=== PATIENT | female | born 1975 | race Caucasian/White ===

== ENCOUNTER 2021-10-21 06:19 | Outpatient (REF) | payer OTHER, SELFPAY | END 2021-10-21 06:20 | disposition home or self-care (01) | LOC: HO.LAB 06:19 | PROVIDERS: PCP Internal Medicine; Visit Provider Internal Medicine | DX: Z13.89 Encounter for screening for other disorder (principal) ==

== ENCOUNTER 2021-12-08 06:30 | Outpatient (REF) | payer OTHER, SELFPAY ==
[2021-12-08 06:35] LABS: MANUAL DIFF FLAG NO
[2021-12-08 07:05] LABS: Basophils Absolute Auto 0.1 X10*3/uL (0.0-0.2); Basophils Percent Auto 0.9 % (0-2); Eosinophils Absolute Auto 0.2 X10*3/uL (0.0-0.4); Eosinophils Percent Auto 2.5 % (0-4); Hematocrit 39.8 % (37.0-47.0); Hemoglobin 13.4 g/dl (12.0-16.0); Imm Gran Abs Auto 0.01 X10*3/uL (0.00-0.03); Imm Gran Pct Auto 0.2 % (0.0-0.4); Lymphocytes Absolute Auto 2.6 X10*3/uL (1.2-4.9); Lymphocytes Percent Auto 40.4 % (20-40); Mean Corpuscular HGB Conc 33.7 g/dl (31.0-35.0); Mean Corpuscular Hemoglobin 29.2 pg (27.0-33.0); Mean Corpuscular Volume 86.7 fL (80.0-98.0); Mean Platelet Volume 11.4 fL (9.4-12.3); Monocytes Absolute Auto 0.6 X10*3/uL (0.1-1.2); Monocytes Percent Auto 9.6 % (2-11); Neutrophils Percent Auto 46.4 % (45-73); Platelet Count 267 X10*3/uL (160-400); Red Blood Count 4.59 X10*6/uL (4.20-5.50); Red Cell Distribution Width 13.1 % (11.0-16.0); White Blood Count 6.5 X10*3/uL (4.8-10.8)
[2021-12-08 07:41] LABS: Alanine Aminotransferase 18 U/L (0-31); Albumin Level 4.4 g/dL (3.5-5.0); Alkaline Phosphatase 63 U/L (39-117); Anion Gap 11 (12-20); Aspartate Amino Transferase 20 U/L (5-31); Bilirubin Total 0.7 mg/dL (0.0-1.0); Blood Urea Nitrogen 10 mg/dL (9-16); Calcium 9.8 mg/dL (8.4-10.2); Carbon Dioxide 27 mmol/L (22-29); Chloride 106 mmol/L (96-108); Cholesterol 195 mg/dL; Estimated Glomerular Filt Rate > 60; Glucose Fasting 101 mg/dL (60-99); HDL Cholesterol 48 mg/dL; LDL Cholesterol Calculated 130 mg/dl; Potassium 4.7 mmol/L (3.3-5.1); Sodium 139 mmol/L (135-145); Total Protein 7.4 g/dL (6.5-8.0); Triglycerides 86 mg/dL
[2021-12-08 08:04] LABS: TSH reflex Free T4 2.41 uIU/mL (0.32-4.0); Vitamin D 25-OH Total 18.8 ng/mL (>30)
[2021-12-08 09:02] LABS: Folate 12.1 ng/mL (> or = 4.0); Vitamin B12 377 pg/mL (200-900)
[2021-12-08 09:40] LABS: Appearance Urine CLEAR; Color Urine YELLOW; Glucose Urine UA NEG (NEG); Leukocyte Esterase Urine TRACE (NEG); Nitrite Urine NEG (NEG); Specific Gravity - Urine 1.015 (1.005-1.025); UACC Culture Trigger YES; Urine Blood TRACE (NEG); Urine Ketones NEG (NEG); Urine Protein NEG (NEG-TRACE)
[2021-12-08 10:08] LABS: RBC Urine 0-2 /HPF (0); Squamous Epithelial Cell Urine 1+ /LPF; WBC Urine 0-2 /HPF (0-4)
[2021-12-08 10:09] LABS: Bacteria Urine TRACE /LPF
== END 2021-12-08 06:31 | disposition home or self-care (01) ==
LOC: HO.LAB 06:30
PROVIDERS: PCP Internal Medicine; Visit Provider Internal Medicine
DX: Z00.00 Encounter for general adult medical examination without abnormal findings (principal); E78.00 Pure hypercholesterolemia, unspecified; E53.8 Deficiency of other specified B group vitamins; G43.909 Migraine, unspecified, not intractable, without status migrainosus; K59.00 Constipation, unspecified; E55.9 Vitamin D deficiency, unspecified
CPT/HCPCS: 36415; 80053; 80061; 81001; 81003; 82306; 82607; 82746; 84443; 85025; 87086

== ENCOUNTER 2023-09-20 08:58 | Outpatient (AMB) | payer OTHER, SELFPAY ==
[2023-09-20 09:00] VITALS: BP 110/80; PULSE 75; O2SAT 98; BMI 23.0
--- NOTE | 2023-09-20 09:00 | MHC.PC.OV ---
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 Accompanied by: Self / Same As Patient Allergies sumatriptan Allergy (Severe, Verified 09/20/23 09:20) nausea, throat feels like closing codeine Allergy (Intermediate, Verified 09/20/23 09:20) itching Medication List - Last Reconciled 09/20/23 by Kip Osborn MD albuterol sulfate 90 mcg/actuation 2 puffs PO Q6H PRN carisoprodol 350 mg PO TID PRN cholecalciferol (vitamin D3) 50 mcg PO DAILY 90 days ibuprofen 800 mg PO Q12H PRN lorazepam 1 mg PO DAILY PRN 30 days naratriptan 2.5 mg PO ONCE PRN 30 days oxycodone 15 mg PO BID PRN Tobacco use date assessed: 09/20/23 Dental Screening Dental Screen Date: 09/20/23 Did you have a dental visit in the last 12 months?: Yes Did you have a dental problem in the last 6 months where you did not have access to dental care?: No Was dental information given to patient?: Patient has dentist HPI Annual Exam- NEEDS PHQ9/THRIVE HPI Details Patient comes in today for her annual physical examination States that she feels okay She denies any headaches or dizziness - states that her migraine headaches have been well-controlled for a while now and she seems to get them more often just before her monthly periods lately Denies any chest pains, no SOB No nausea/vomiting, no abdominal pain No change in bowel habits noted - still has frequent constipation but takes Miralax when needed with (+) relief of symptoms Denies any acute urinary symptoms She continues to follow up with pain management in [place], [place] for her chronic low back pain Needs a couple of her Rx refilled She was not able to get her labs done prior to her appt today - states that she will try to get them done JOSE if the orders are still active in her chart Would also like to get her flu shot today Had her Cologuard test done a couple of years ago in 2021 - was negative She last had her annual mammogram in June 2023 and states that she is up-to-date with her yearly gynecology exam and pap smear (retirement consultant is at [facility]) [facility] Medical History Vitamin D deficiency Anxiety Constipation Vitamin B12 deficiency Migraine Lumbar spondylosis Pure hypercholesterolemia Surgical History No pertinent past surgical history Family History Father Hypertension CVD (cardiovascular disease) Mother Uterine cancer Social History Housing: House Alcohol intake: current Alcohol intake frequency: holidays/special occasions only Patient Tobacco Use Status: Never used Tobacco Second Hand Smoke Exposure: No service: No Current occupational status: employed Cognitive needs: No Hearing needs: No Vision needs: No Questionnaire PHQ-9 Over the last 2 weeks, how often have you been bothered by any of the following problems? 1. Little interest or pleasure in doing things: not at all 2. Feeling down, depressed, or hopeless: not at all 3. Trouble falling or staying asleep, or sleeping too much: not at all 4. Feeling tired or having little energy: not at all 5. Poor appetite or overeating: not at all 6. Feeling bad about yourself - or that you are a failure or have let yourself or your family down: not at all 7. Trouble concentrating on things, such as reading the newspaper or watching television: not at all 8. Moving or speaking so slowly that other people could have noticed. Or the opposite - being so fidgety or restless that you have been moving around a lot more than usual: not at all 9. Thoughts that you would be better off or of hurting yourself in some way: not at all Total score: 0 Depression Screening Interpretation: Negative Depression Screening Done: Yes [id number] - PHQ-9 Billing: Yes Source: Developed by Drs. João Abdi, Oly Jeter, Darrick Murphy and colleagues, with an educational ciara from [employer]. Thrive Questionnaire Date Thrive assessed: 09/20/23 I am a: Patient What is your living situation today?: I have a steady place to live Within the past 12 months, did the food you bought not last and you didn't have the money to get more?: Never true Within the past 12 months, did you worry whether your food would run out before you got money to buy more?: Never true Do you have trouble paying for medicines?: No Do you have trouble getting transportation to medical appointments?: No Do you have trouble paying your heating and electricity bill?: No Do you have trouble taking care of your child, family member or friend?: No Do you have trouble with day-to-day activities such as bathing, preparing meals, shopping, managing finances, etc.?: No Are you currently unemployed and looking for a job?: No Are you interested in more education?: No Please select the resources that you would like help with: None Currently or been in a relationship where the following occur: no concerns reported AUDIT C Alcohol Use Questionnaire (AUDIT-C) 1. How often do you have a drink containing alcohol?: Monthly or less 2. How many drinks containing alcohol do you have on a typical day when you are drinking?: 1 or 2 3. How often do you have six or more drinks on one occasion?: Never Total Score: 1 Score Reviewed/Action Taken: Yes HARINDER-7 AMB Questionnaire HARINDER-7 Date HARINDER - 7 assessed: 09/20/23 Feeling nervous, anxious, or on edge: 1 = Several days Not being able to stop or control worryin = Several days Worrying too much about different things: 1 = Several days Trouble relaxin = Not at all Being so restless that it is hard to sit still: 0 = Not at all Becoming easily annoyed or irritable: 0 = Not at all Feeling afraid as if something awful might happen: 0 = Not at all Total HARINDER-7 score (0-4 normal; 5-9 mild; 10-14 moderate; 15-21 severe): 3 Source: Developed by Drs. João Abdi, Oly Jeter, Darrick Murphy and colleagues, with an educational ciara from [employer]. Review of Systems Const Denies chills, Denies fatigue, Denies fever(s), Denies headache(s) (migraine headaches are well-controlled - see HPI) and Denies malaise Eyes Denies blurry vision, Denies change in vision, Denies irritation and Denies itchy eyes ENT Denies dysphagia, Denies dizziness, Denies otalgia, Denies headache(s) (migraine headaches are well-controlled - see HPI), Denies nasal congestion, Denies neck pain, Denies odynophagia, Denies sinus pain and Denies sore throat Card Denies chest pain, Denies rapid heart rate, Denies irregular heart rhythm, Denies palpitations and Denies dyspnea Resp Denies chest congestion, Denies cough, Denies dyspnea and Denies wheezing GI Denies abdominal pain, Denies bloating, Reports constipation (occasional), Denies dysphagia, Denies heartburn, Denies diarrhea, Denies nausea, Denies odynophagia and Denies vomiting Denies hematuria, Denies urinary frequency, Denies dysuria, Denies urinary incontinence and Denies urinary urgency Musc Reports back pain (over the lower back - chronic), Denies arthralgias, Denies joint swelling, Denies muscle weakness and Denies neck pain Skin/Breast Denies breast pain, Denies breast mass, Denies change in pigmentation, Denies lesions, Denies rash and Denies unusual bruising Neuro Denies dizziness, Denies headache(s) (migraine headaches are well-controlled - see HPI) and Denies paresthesias Psych Denies anxiety and Denies depression Endo Denies fatigue and Denies palpitations Lorenzo/Lymph Denies easy bruising Aller/Immun Denies itchy eyes and Denies wheezing Physical exam (Primary Care) Vital Signs: Last Vital Signs Pulse 75 09/20/23 09:00 BP 110/80 09/20/23 09:00 Pulse Ox 98 09/20/23 09:00 Oxygen Delivery Method Room Air 09/20/23 09:00 BMI result Body Mass Index 23.0 Tobacco/Smoking Status: Tobacco use Status Tobacco use date assessed 09/20/23 09/20/23 09:07 Patient Tobacco Use Status Never used Tobacco 09/20/23 09:07 PHQ-9: PHQ-9 Score PHQ-9: Total score 0 09/20/23 09:11 Depression Screening Interpretation: Negative Thrive Assessment: Date of Thrive Assessment Date Thrive assessed 09/20/23 09/20/23 09:07 Currently or been in a relationship where the following occur: no concerns reported Const General: no acute distress, alert and awake Orientation/consciousness: patient oriented x3 HENMT Head: Yes normocephalic and Yes atraumatic Ears: external ears normal, TM's normal bilaterally and EAC's normal General nose exam: No nasal discharge present Face and sinus: Yes normal facial exam and Yes sinuses nontender Teeth and gingiva: dentition normal Throat: Yes posterior oropharynx normal and Yes tonsils normal (no TP congestion) Eyes Eyelids: Yes eyelids normal Conjunctivae: conjunctivae normal Pupils: Equal, round and reactive pupils present EOM: EOMs intact bilaterally Neck Neck: Yes no lymphadenopathy and Yes supple Thyroid: Thyroid normal Resp Auscultation: clear to auscultation bilaterally, no rales and no wheezes Cardio Rate: regular rate Rhythm: regular rhythm Heart sounds: no murmurs GI Palpation (GI): Soft to palpation, nontender and No hepatosplenomegaly present Auscultation: normal bowel sounds General: Yes no CVA tenderness Back/Spine/Pelvis Back: no CVA tenderness Thoracic/Lumbar Spine: lumbar spinal tenderness Skin Lesions: no lesions Rashes: no rashes Neuro General: patient oriented x3, moves all extremities, no focal motor deficits and CN's II-XI intact bilaterally Cranial nerves: Yes Equal, round and reactive pupils present Cognition (Neuro): normal cognition Gait exam (Neuro): Normal gait present Extrem General: Yes no clubbing, cyanosis or edema Office Procedures Flu Questionnaire Does the patient have a severe egg allergy?: No Does the patient have severe life threatening allergies?: No Does the patient have a fever or illness today?: No Has the patient ever had Guillain-[place] Syndrome?: No Has the patient ever had any past reaction to a flu shot?: No Immunizations flu vacc [id number] 6mos up(PF) 60 mcg(15 mcgx4)/0.5 mL IM syringe Performing Provider: Kip Osborn MD [facility] Administered by: Ivan Balbuena on 09/20/23 09:11 Dose Route Admin Location Dispensed Lot Number Expiration Date NDC Ethyl Blender 0.5 mL IM Left Deltoid 0.5 mL [id number] 04/15/24 [id number] [employer] VIS Given Date VIS Provided VIS Publication Date 09/20/23 Single Vaccine 21 Eligibility Eligibility Date Funding Source Not [facility] Eligible 09/20/23 Private Assessment and Plan Assessment & Plan (1) Annual physical exam: Code(s): Z00.00 - Encounter for general adult medical examination without abnormal findings Plan: Check labs JOSE - lab orders are reordered Had a negative Cologuard in 2020 and will need either repeat Cologuard next year (2023) or a regular screening colonoscopy She is up-to-date with her yearly mammogram and pap smear/gynecology exam (2) Pure hypercholesterolemia: Code(s): E78.00 - Pure hypercholesterolemia, unspecified Plan: Patient is again advised that her cholesterol levels when checked last year are still within the normal range but they are at the higher end of the normal spectrum and she should try to work on getting them lower with diet modification and exercise Reinforced low-cholesterol diet Will recheck her labs and fasting lipids JOSE for follow-up (3) Migraine: Code(s): G43.909 - Migraine, unspecified, not intractable, without status migrainosus Qualifiers: Migraine type: unspecified Status migrainosus presence: without status migrainosus Intractability: not intractable Qualified Code(s): G43.909 - Migraine, unspecified, not intractable, without status migrainosus Plan: Stable - states that she mostly gets headaches only around the time of her menstrual periods Continue Naratriptan 2.5 mg PRN (4) Lumbar spondylosis: Code(s): M47.816 - Spondylosis without myelopathy or radiculopathy, lumbar region Plan: Reinforced activity and weight-lifting restrictions Follow up with pain management in [place], [place] as scheduled for her chronic low back pain Is currently maintained on Oxycodone 15 mg BID, Carisoprodol 350 mg TID PRN and Ibuprofen PRN; used to take Gabapentin but stopped taking this last year (5) Vitamin B12 deficiency: Code(s): E53.8 - Deficiency of other specified B group vitamins Plan: Corrected when labs were checked last year; will recheck her B12 level JOSE for follow up (6) Vitamin D deficiency: Code(s): E55.9 - Vitamin D deficiency, unspecified Plan: Continue Vitamin D3 2000 units QD Will also recheck her Vitamin D level for follow up (7) Constipation: Code(s): K59.00 - Constipation, unspecified Qualifiers: Constipation type: unspecified constipation type Qualified Code(s): K59.00 - Constipation, unspecified Plan: Chronic - constipation is also partly due to her chronic pain Rx Contnue OTC Miralax QD PRN; advised that she can also take OTC Colace additionally PRN Encouraged again to increase her oral fluids and dietary fiber (8) Anxiety: Code(s): F41.9 - Anxiety disorder, unspecified Plan: Continue Lorazepam QD PRN - Rx refilled Plan Flu vaccine given today To return in 1 year for her next annual physical examination Will also order her labs for her next year's physical exam and advised to try to get these done just before her appointment next year Orders: Orders Influenza [id number] Immunization Today Z23 - Encounter for immunization UA CC w/rflx Micro + Cult Today R30.0 - Dysuria, Z00.00 - Encounter for general adult medical examination without abnormal findings Vitamin D 25-OH Total Today E55.9 - Vitamin D deficiency, unspecified, Z00.00 - Encounter for general adult medical examination without abnormal findings Complete Blood Count Auto Diff 365 Days G43.909 - Migraine, unspecified, not intractable, without status migrainosus, Z00.00 - Encounter for general adult medical examination without abnormal findings Comprehensive Capulin. Panel Fast 365 Days E78.00 - Pure hypercholesterolemia, unspecified, Z00.00 - Encounter for general adult medical examination without abnormal findings Lipid Panel 365 Days E78.00 - Pure hypercholesterolemia, unspecified, Z00.00 - Encounter for general adult medical examination without abnormal findings TSH reflex Free T4 365 Days E78.00 - Pure hypercholesterolemia, unspecified, Z00.00 - Encounter for general adult medical examination without abnormal findings Vitamin D 25-OH Total 365 Days E55.9 - Vitamin D deficiency, unspecified, Z00.00 - Encounter for general adult medical examination without abnormal findings Vitamin B12 and Folate 365 Days E53.8 - Deficiency of other specified B group vitamins, Z00.00 - Encounter for general adult medical examination without abnormal findings Complete Blood Count Auto Diff Today G43.909 - Migraine, unspecified, not intractable, without status migrainosus, K59.00 - Constipation, unspecified, Z00.00 - Encounter for general adult medical examination without abnormal findings Comprehensive Capulin. Panel Fast Today E78.00 - Pure hypercholesterolemia, unspecified, Z00.00 - Encounter for general adult medical examination without abnormal findings Lipid Panel Today E78.00 - Pure hypercholesterolemia, unspecified, Z00.00 - Encounter for general adult medical examination without abnormal findings TSH reflex Free T4 Today E78.00 - Pure hypercholesterolemia, unspecified, Z00.00 - Encounter for general adult medical examination without abnormal findings UA CC w/rflx Micro + Cult 365 Days R30.0 - Dysuria, Z00.00 - Encounter for general adult medical examination without abnormal findings Medications: Changed From oxycodone 15 mg PO BID PRN 30 tabs 0RF pain To oxycodone from pain management in [place], [place] 15 mg PO BID PRN 30 tabs 0RF pain Refilled lorazepam 1 mg PO DAILY PRN 30 tabs 1RF anxiety 30 days F41.9 - Anxiety disorder, unspecified cholecalciferol (vitamin D3) 50 mcg PO DAILY 90 caps 3RF 90 days E55.9 - Vitamin D deficiency, unspecified Coding Level of Care Code Est Pt Prev Care 40-64y(74480) Diagnoses Annual physical exam Z00.00 Pure hypercholesterolemia E78.00 Migraine without status migrainosus, not intractable, unspecified migraine type G43.909 Migraine type: unspecified Status migrainosus presence: without status migrainosus Intractability: not intractable Lumbar spondylosis M47.816 Vitamin B12 deficiency E53.8 Vitamin D deficiency E55.9 Constipation, unspecified constipation type K59.00 Constipation type: unspecified constipation type Anxiety F41.9
== END 2023-09-20 09:34 | disposition home or self-care (01) ==
PROVIDERS: Visit Provider Internal Medicine
DX: Z00.00 Encounter for general adult medical examination without abnormal findings (principal); E78.00 Pure hypercholesterolemia, unspecified; G43.909 Migraine, unspecified, not intractable, without status migrainosus; Z23 Encounter for immunization; M47.816 Spondylosis without myelopathy or radiculopathy, lumbar region; E53.8 Deficiency of other specified B group vitamins; E55.9 Vitamin D deficiency, unspecified; K59.00 Constipation, unspecified; F41.9 Anxiety disorder, unspecified
CPT/HCPCS: 90471; 90686; 99396

== ENCOUNTER 2024-04-06 08:14 | Outpatient (AMB) | payer OTHER, SELFPAY ==
[2024-04-06 08:15] VITALS: BP 118/72; PULSE 76; TEMP 36.6; O2SAT 98; BMI 23.0
--- NOTE | 2024-04-06 08:15 | AM.OFFWIN_ITS ---
Intake Vital Signs 04/06/24 08:15 Height 5 ft 3 in Weight 130 lb BMI 23.0 BP 118/72 Blood Pressure Location Rt brachial Position Sitting Pulse 76 Pulse Source Pulse Oximeter Temp 97.9 F Temp Source Oral Pulse Oximetry (%) 98 Intake Visit Reasons: EP Lower left abd pain Intake Note: pt is here for lower left abd pain ongoing for a few months ago Patient Tobacco Use Status: Never used Tobacco Allergies sumatriptan Allergy (Severe, Verified 04/06/24 08:15) nausea, throat feels like closing codeine Allergy (Intermediate, Verified 04/06/24 08:15) itching Do you need a note to return to daycare/school/sports/work: No HPI HPI Comments History of Present Illness Details Patient is a 48-year-old female complaining of months of right lower quadrant pain. She states she was lifting heavy weights quite a few months ago and she felt a tear/pull as she was lifting the weight and front of her face and to the opposite side. She stopped working out for a while to try to rest it to make it feel better. 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 She denies any fevers, bloody or black stools, diarrhea, constipation more than her baseline, back pain, blood in her urine, increased urgency, increased frequency. She states the pain feels a little bit better when she curls up into a ball and hurts a little bit more when she stretches out her abdomen. She states she has ever had a colonoscopy but did do the Cologuard which was negative. [facility] Medical History Vitamin D deficiency Anxiety Constipation Vitamin B12 deficiency Migraine Lumbar spondylosis Pure hypercholesterolemia Surgical History No pertinent past surgical history Family History Father Hypertension CVD (cardiovascular disease) Mother Uterine cancer Social History Housing: House Alcohol intake: current Alcohol intake frequency: holidays/special occasions only Patient Tobacco Use Status: Never used Tobacco Second Hand Smoke Exposure: No service: No Current occupational status: employed Cognitive needs: No Hearing needs: No Vision needs: No Review of Systems Const All systems reviewed & are unremarkable except as noted in HPI and below Physical Exam Const General: cooperative, healthy appearing, comfortable, no acute distress and well developed Orientation/consciousness: patient oriented x3 Limitations: no limitations HEENT Head: Yes normal to inspection Eyes General: appearance normal, both eyes and all related structures Neck Neck: Yes normal visual inspection and Yes full ROM Resp Effort & Inspection: normal respiratory effort and able to speak in complete sentences GI Inspection: Yes normal to inspection Palpation (GI): Soft to palpation, nontender, no guarding, hepatosplenomegaly present and no hernias Skin General skin exam: no rashes or lesions noted Neuro General: patient oriented x3 Extrem General: Yes normal to inspection Assessment & Plan Assessment & Plan (1) Abdominal muscle strain: Code(s): S39.011A - Strain of muscle, fascia and tendon of abdomen, initial encounter Qualifiers: Encounter type: initial encounter Qualified Code(s): S39.011A - Strain of muscle, fascia and tendon of abdomen, initial encounter Plan: Sounds like she pulled a muscle in her abdomen a few months ago and re-injured it recently, we will send message to PCP for PT referral or for PCP to meet with pt for further evaluation. Plan see above Coding Level of Care Code Est Pt Level 3 (22690) Diagnoses Strain of abdominal muscle, initial encounter S39.011A Encounter type: initial encounter
== END 2024-04-06 08:55 | disposition home or self-care (01) ==
PROVIDERS: PCP Internal Medicine; Visit Provider Physician Assistant
DX: S39.011A Strain of muscle, fascia and tendon of abdomen, initial encounter (principal)
CPT/HCPCS: 99213

== ENCOUNTER 2024-08-10 08:26 | Outpatient (AMB) | payer OTHER, SELFPAY ==
--- NOTE | 2024-08-10 08:28 | MHC.OFFWIV ---
Intake Vital Signs 08/10/24 08:29 Height 5 ft 3 in Weight 139 lb BMI 24.6 BP 108/70 Blood Pressure Location Lt brachial Position Sitting Pulse 82 Pulse Source Pulse Oximeter Temp 98.2 F Temp Source Oral Pulse Oximetry (%) 98 Oxygen Delivery Method Room Air Intake Visit Reasons: EP cough, congestion Intake Note: Patient here for cough, upper chest congestion that has been present for a few weeks. she has tried several OTC meds which do not help. Patient Tobacco Use Status: Never used Tobacco Allergies sumatriptan Allergy (Severe, Verified 08/10/24 08:30) nausea, throat feels like closing codeine Allergy (Intermediate, Verified 08/10/24 08:30) itching Do you need a note to return to daycare/school/sports/work: No HPI HPI Comments History of Present Illness Details Patient is a 49-year-old female complaining of 3 weeks of a cough that just will not go away. She says that she has a cough with some chest congestion. She has tried taking Robitussin, TheraFlu and other gtzs-nzl-svxqynr medications but it does not seem to be helping. She denies any fevers, shortness of breath, headaches, sinus pain or ear pain or sore throat. She denies a history of asthma or COPD. She did test for COVID at home twice and both times was negative. [facility] Medical History Vitamin D deficiency Anxiety Constipation Vitamin B12 deficiency Migraine Lumbar spondylosis Pure hypercholesterolemia Surgical History No pertinent past surgical history Family History Father Hypertension CVD (cardiovascular disease) Mother Uterine cancer Social History Housing: House Alcohol intake: current Alcohol intake frequency: holidays/special occasions only Patient Tobacco Use Status: Never used Tobacco Second Hand Smoke Exposure: No service: No Current occupational status: employed Cognitive needs: No Hearing needs: No Vision needs: No Review of Systems Const All systems reviewed & are unremarkable except as noted in HPI and below Physical Exam Vital Signs: Last Vital Signs Temp 98.2 F 08/10/24 08:29 Pulse 82 08/10/24 08:29 BP 108/70 08/10/24 08:29 Pulse Ox 98 08/10/24 08:29 Oxygen Delivery Method Room Air 08/10/24 08:29 BMI result Body Mass Index 24.6 Const General: cooperative, healthy appearing, comfortable and no acute distress Orientation/consciousness: patient oriented x3 Limitations: no limitations HEENT Head: Yes normal to inspection Ears: hearing grossly normal bilaterally, external ears normal and TM's normal bilaterally General nose exam: Normal external nose present, Normal nares present and No nasal discharge present Face and sinus: Yes normal facial exam and Yes sinuses nontender Mouth: Normal oral and palatal mucosa present and moist mucous membranes Throat: Yes tonsils normal, Yes uvula midline and Yes posterior oropharynx abnormal (Erythema) Eyes General: appearance normal, both eyes and all related structures Neck Neck: Yes normal visual inspection Resp Effort & Inspection: normal respiratory effort, able to speak in complete sentences, no respiratory distress, not tachypneic, no tripod positioning and no use of accessory muscles Auscultation: clear to auscultation bilaterally Cardio Rate: regular rate Rhythm: regular rhythm Heart sounds: normal S1 and S2 Skin General skin exam: no rashes or lesions noted Neuro General: patient oriented x3 Extrem General: Yes normal to inspection and Yes no clubbing, cyanosis or edema Assessment & Plan Assessment & Plan (1) Atypical pneumonia: Code(s): J18.9 - Pneumonia, unspecified organism Plan: Vital signs are stable, patient well-appearing and lung sounds are clear, likely atypical pneumonia with a persistent cough. Sent Z-Eze to pharmacy, patient also requested Diflucan as she states she usually gets a yeast infection when she takes an antibiotic. Explained to patient how to use the Diflucan. Recommended she continue with her xilv-yii-xrlpifp medications to treat her symptoms as well. Plan see Above Medications: New fluconazole may repeat second dose 72 hrs after first dose if symptoms persist 150 mg PO Q3D 2 tabs 0RF azithromycin For 250 mg dose pack: take 500 mg today (day 1), then 250 mg for 4 days (days 2-5) PO 6 tabs 0RF Coding Level of Care Code Est Pt Level 3 (68149) Diagnoses Atypical pneumonia J18.9
[2024-08-10 08:29] VITALS: BP 108/70; PULSE 82; TEMP 36.8; O2SAT 98; BMI 24.6
== END 2024-08-10 09:07 | disposition home or self-care (01) ==
PROVIDERS: PCP Internal Medicine; Visit Provider Physician Assistant
DX: J18.9 Pneumonia, unspecified organism (principal)

== ENCOUNTER → 2024-08-10 08:26 | Outpatient (BNVA) | payer OTHER, SELFPAY | PROVIDERS: PCP Internal Medicine | DX: J18.9 Pneumonia, unspecified organism (principal) | CPT/HCPCS: 99212 ==

== ENCOUNTER 2024-09-07 07:48 | Outpatient (REF) | payer OTHER, SELFPAY ==
[2024-09-07 08:12] LABS: MANUAL DIFF FLAG NO
[2024-09-07 08:47] LABS: Basophils Absolute Auto 0.1 X10*3/uL (0.0-0.2); Basophils Percent Auto 1.5 % (0-2); Eosinophils Absolute Auto 0.3 X10*3/uL (0.0-0.4); Eosinophils Percent Auto 6.8 % (0-4); Hematocrit 38.1 % (37.0-47.0); Hemoglobin 13.2 g/dl (12.0-16.0); Imm Gran Abs Auto 0.01 X10*3/uL (0.00-0.03); Imm Gran Pct Auto 0.2 % (0.0-0.4); Lymphocytes Percent Auto 44.9 % (20-40); Mean Corpuscular HGB Conc 34.6 g/dl (31.0-35.0); Mean Corpuscular Hemoglobin 30.1 pg (27.0-33.0); Mean Platelet Volume 10.7 fL (9.4-12.3); Monocytes Absolute Auto 0.5 X10*3/uL (0.1-1.2); Monocytes Percent Auto 10.6 % (2-11); Neutrophils Absolute Auto 1.6 x10*3/uL (2.0-8.3); Platelet Count 258 X10*3/uL (160-400); Red Blood Count 4.38 X10*6/uL (4.20-5.50); Red Cell Distribution Width 12.4 % (11.0-16.0); White Blood Count 4.5 X10*3/uL (4.8-10.8)
[2024-09-07 09:07] LABS: Appearance Urine Clear; Color Urine Yellow; Glucose Urine UA Negative (Negative); Leukocyte Esterase Urine Trace (Negative); Nitrite Urine Negative (Negative); Specific Gravity - Urine 1.015 (1.005-1.025); UMIC TRIGGER UACC YES; Urine Blood Negative (Negative); Urine Ketones Negative (Negative); Urine Protein Negative (Neg-Trace)
[2024-09-07 09:14] LABS: Bacteria Urine None Seen (None Seen); Hyaline Casts Urine 0-2 /LPF (0-2); RBC Urine 0-2 /HPF (0-2); Squamous Epithelial Cell Urine 0-2 /HPF (0-2); WBC Urine 0-5 /HPF (0-5)
[2024-09-07 09:20] LABS: Alanine Aminotransferase 21 U/L (0-31); Albumin Level 4.3 g/dL (3.5-5.0); Alkaline Phosphatase 64 U/L (39-117); Anion Gap 10 (12-20); Aspartate Amino Transferase 24 U/L (5-31); Bilirubin Total 0.5 mg/dL (0.0-1.0); Blood Urea Nitrogen 10 mg/dL (9-16); Calcium 9.8 mg/dL (8.4-10.2); Carbon Dioxide 27 mmol/L (22-29); Chloride 106 mmol/L (96-108); Cholesterol 201 mg/dL (<200); Estimated Glomerular Filt Rate > 60; Glucose Fasting 96 mg/dL (60-99); HDL Cholesterol 57 mg/dL (>40); LDL Cholesterol Calculated 133 mg/dL (<100); Potassium 4.6 mmol/L (3.3-5.1); Sodium 138 mmol/L (135-145); Total Protein 7.3 g/dL (6.5-8.0); Triglycerides 59 mg/dL (<150)
[2024-09-07 09:28] LABS: Vitamin D 25-OH Total 31.5 ng/mL (>30)
[2024-09-07 09:44] LABS: Vitamin B12 350 pg/mL (200-900)
== END 2024-09-07 07:49 | disposition home or self-care (01) ==
LOC: HO.LAB 07:48
PROVIDERS: PCP Internal Medicine; Visit Provider Internal Medicine
DX: Z00.00 Encounter for general adult medical examination without abnormal findings (principal); E78.00 Pure hypercholesterolemia, unspecified; E55.9 Vitamin D deficiency, unspecified; E53.8 Deficiency of other specified B group vitamins; G43.909 Migraine, unspecified, not intractable, without status migrainosus
CPT/HCPCS: 36415; 80053; 80061; 81001; 81003; 82306; 82607; 82746; 84443; 85025

== ENCOUNTER 2024-09-25 08:58 | Outpatient (AMB) | payer OTHER, SELFPAY ==
[2024-09-25 09:00] VITALS: BP 110/68; PULSE 78; O2SAT 98; BMI 24.5
--- NOTE | 2024-09-25 09:00 | MHC.PC.OV ---
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 Accompanied by: Self / Same As Patient Allergies sumatriptan Allergy (Severe, Verified 09/25/24 09:17) nausea, throat feels like closing codeine Allergy (Intermediate, Verified 09/25/24 09:17) itching Medication List - Last Reconciled 09/25/24 by Kip Osborn MD cholecalciferol (vitamin D3) 50 mcg PO DAILY 90 days ibuprofen 800 mg PO Q12H PRN lorazepam 1 mg PO DAILY PRN 30 days naratriptan 2.5 mg PO ONCE PRN 30 days oxycodone 15 mg PO BID PRN Ventolin HFA 90 mcg/actuation (albuterol sulfate) 2 puffs PO Q6-8H PRN 30 days NS Tobacco use date assessed: 09/25/24 Dental Screening Dental Screen Date: 09/25/24 Did you have a dental visit in the last 12 months?: Yes Did you have a dental problem in the last 6 months where you did not have access to dental care?: No Was dental information given to patient?: Patient has dentist HPI ANNUAL HPI Details Patient comes in today for her annual physical examination States that she feels okay She denies any headaches or dizziness Denies any chest pains, no SOB No nausea/vomiting, no abdominal pain No change in bowel habits noted Denies any acute urinary symptoms She needs a few of her Rx refilled She had her follow up labs done a couple of weeks ago - to discuss her results She would also like to get her flu shot today She is up-to-date with her annual mammography - had her mammogram last done in June 2024 She is scheduled for her next annual gynecology exam and pap smear in October 2024 - gynecology is at [facility] She last had her Cologuard testing done in September 2021 and it is now time for her to get either a repeat Cologuard test or an actual screening colonoscopy She currently still has her menstrual periods so BMD is not yet indicated [facility] Medical History Vitamin D deficiency Anxiety Constipation Vitamin B12 deficiency Migraine Lumbar spondylosis Pure hypercholesterolemia Surgical History No pertinent past surgical history Family History Father Hypertension CVD (cardiovascular disease) Mother Uterine cancer Social History Housing: House Alcohol intake: current Alcohol intake frequency: holidays/special occasions only Patient Tobacco Use Status: Never used Tobacco e-Cigarette/Vaping Use: Never Used Second Hand Smoke Exposure: No service: No Current occupational status: employed Cognitive needs: No Hearing needs: No Vision needs: No Questionnaire PHQ-9 Over the last 2 weeks, how often have you been bothered by any of the following problems? 1. Little interest or pleasure in doing things: not at all 2. Feeling down, depressed, or hopeless: not at all 3. Trouble falling or staying asleep, or sleeping too much: several days 4. Feeling tired or having little energy: several days 5. Poor appetite or overeating: not at all 6. Feeling bad about yourself - or that you are a failure or have let yourself or your family down: not at all 7. Trouble concentrating on things, such as reading the newspaper or watching television: not at all 8. Moving or speaking so slowly that other people could have noticed. Or the opposite - being so fidgety or restless that you have been moving around a lot more than usual: not at all 9. Thoughts that you would be better off or of hurting yourself in some way: not at all Total score: 2 Depression Screening Interpretation: Negative Depression Screening Done: Yes 62544 - PHQ-9 Billing: Yes Source: Developed by Drs. João Abdi, Oly Jeter, Darrick Murphy and colleagues, with an educational ciara from [email or web address]. Thrive Questionnaire Date Thrive assessed: 09/25/24 I am a: Patient What is your living situation today?: I have a steady place to live Within the past 12 months, did the food you bought not last and you didn't have the money to get more?: Never true Within the past 12 months, did you worry whether your food would run out before you got money to buy more?: Never true Do you have trouble paying for medicines?: No Do you have trouble getting transportation to medical appointments?: No Do you have trouble paying your heating and electricity bill?: No Do you have trouble taking care of your child, family member or friend?: No Do you have trouble with day-to-day activities such as bathing, preparing meals, shopping, managing finances, etc.?: No Are you currently unemployed and looking for a job?: No Are you interested in more education?: No Please select the resources that you would like help with: None Currently or been in a relationship where the following occur: No concerns reported THRIVE Score: 0 AUDIT C Alcohol Use Questionnaire (AUDIT-C) 1. How often do you have a drink containing alcohol?: Monthly or less 2. How many drinks containing alcohol do you have on a typical day when you are drinking?: 1 or 2 3. How often do you have six or more drinks on one occasion?: Never Total Score: 1 Score Reviewed/Action Taken: Yes HARINDER-7 AMB Questionnaire HARINDER-7 Date HARINDER - 7 assessed: 09/25/24 Feeling nervous, anxious, or on edge: 0 = Not at all Not being able to stop or control worryin = Several days Worrying too much about different things: 1 = Several days Trouble relaxin = Not at all Being so restless that it is hard to sit still: 0 = Not at all Becoming easily annoyed or irritable: 0 = Not at all Feeling afraid as if something awful might happen: 1 = Several days Total HARINDER-7 score (0-4 normal; 5-9 mild; 10-14 moderate; 15-21 severe): 3 Source: Developed by Drs. João Abdi, Oly Jeter, Darrick Murphy and colleagues, with an educational ciara from [email or web address]. Review of Systems Const Denies chills, Denies fatigue, Denies fever(s), Denies headache(s) and Denies malaise Eyes Denies blurry vision, Denies change in vision, Denies irritation and Denies itchy eyes ENT Denies dysphagia, Denies dizziness, Denies otalgia, Denies headache(s), Denies nasal congestion, Denies neck pain, Denies odynophagia, Denies sinus pain and Denies sore throat Card Denies chest pain, Denies rapid heart rate, Denies irregular heart rhythm, Denies palpitations and Denies dyspnea Resp Denies chest congestion, Denies cough, Denies dyspnea and Denies wheezing GI Denies abdominal pain, Denies bloating, Denies constipation, Denies dysphagia, Denies heartburn, Denies diarrhea, Denies nausea, Denies odynophagia and Denies vomiting Denies hematuria, Denies urinary frequency, Denies dysuria, Denies urinary incontinence and Denies urinary urgency Musc Reports back pain (over the lower back - chronic), Denies arthralgias, Denies joint swelling, Denies muscle weakness and Denies neck pain Skin/Breast Denies breast pain, Denies breast mass, Denies change in pigmentation, Denies lesions, Denies rash and Denies unusual bruising Neuro Denies dizziness, Denies headache(s) and Denies paresthesias Psych Denies anxiety and Denies depression Endo Denies fatigue and Denies palpitations Lorenzo/Lymph Denies easy bruising Aller/Immun Denies itchy eyes and Denies wheezing Physical exam (Primary Care) Vital Signs: Last Vital Signs Pulse 78 09/25/24 09:00 BP 110/68 09/25/24 09:00 Pulse Ox 98 09/25/24 09:00 Oxygen Delivery Method Room Air 09/25/24 09:00 BMI result Body Mass Index 24.5 Tobacco/Smoking Status: Tobacco use Status Tobacco use date assessed 09/25/24 09/25/24 09:02 Patient Tobacco Use Status Never used Tobacco 09/25/24 09:02 e-Cigarette/Vaping Use Never Used 09/25/24 09:10 PHQ-9: PHQ-9 Score PHQ-9: Total score 2 09/25/24 09:20 Depression Screening Interpretation: Negative Thrive Assessment: Date of Thrive Assessment Date Thrive assessed 09/25/24 09/25/24 09:02 Currently or been in a relationship where the following occur: No concerns reported Const General: no acute distress, alert and awake Orientation/consciousness: patient oriented x3 HENMT Head: Yes normocephalic and Yes atraumatic Ears: external ears normal, TM's normal bilaterally and EAC's normal General nose exam: No nasal discharge present Face and sinus: Yes normal facial exam and Yes sinuses nontender Teeth and gingiva: dentition normal Throat: Yes posterior oropharynx normal and Yes tonsils normal (no TP congestion) Eyes Eyelids: Yes eyelids normal Conjunctivae: conjunctivae normal Pupils: Equal, round and reactive pupils present EOM: EOMs intact bilaterally Neck Neck: Yes no lymphadenopathy and Yes supple Thyroid: Thyroid normal Resp Auscultation: clear to auscultation bilaterally, no rales and no wheezes Cardio Rate: regular rate Rhythm: regular rhythm Heart sounds: no murmurs GI Palpation (GI): Soft to palpation, nontender and No hepatosplenomegaly present Auscultation: normal bowel sounds General: Yes no CVA tenderness Back/Spine/Pelvis Back: no CVA tenderness Thoracic/Lumbar Spine: lumbar spinal tenderness (chronic) Skin Lesions: no lesions Rashes: no rashes Neuro General: patient oriented x3, moves all extremities, no focal motor deficits and CN's II-XI intact bilaterally Cranial nerves: Yes Equal, round and reactive pupils present Cognition (Neuro): normal cognition Gait exam (Neuro): Normal gait present Extrem General: Yes no clubbing, cyanosis or edema Office Procedures Flu Questionnaire Does the patient have a severe egg allergy?: No Does the patient have severe life threatening allergies?: No Does the patient have a fever or illness today?: No Has the patient ever had Guillain-[place] Syndrome?: No Has the patient ever had any past reaction to a flu shot?: No Immunizations Fluarix Triv 7390-0106 (PF) 45 mcg (15 mcg x 3)/0.5 mL IM syringe Performing Provider: Kip Osborn MD [facility] Administered by: PIPO Julio on 09/25/24 09:41 Dose Route Admin Location Dispensed Lot Number Expiration Date [facility] Hat And Cap Sewer 0.5 mL IM Left Deltoid 0.5 mL [id number] 04/15/25 [id number] Smash Bucket VIS Given Date VIS Provided VIS Publication Date 09/25/24 Single Vaccine 21 Eligibility Eligibility Date Funding Source Not [facility] Eligible 09/25/24 Private Results Reviewed Results Reviewed: Laboratory Tests 09/07/24 09/07/24 08:03 08:07 WBC 4.5 L Hgb 13.2 Hct 38.1 Plt Count 258 Sodium 138 Potassium 4.6 Creatinine 0.76 Estimated GFR > 60 Fasting Glucose 96 Calcium 9.8 AST 24 ALT 21 Triglycerides 59 Cholesterol 201 H LDL Cholesterol, Calc 133 H HDL Cholesterol 57 Vitamin B12 350 25-OH Vitamin D Total 31.5 TSH 3.80 Ur Specific [place] 1.015 Urine Protein Negative Urine Glucose (UA) Negative Urine Blood Negative Urine Nitrite Negative Ur Leukocyte Esterase Trace H Coding Level of Care Code Est Pt Prev Care 40-64y(13639) Diagnoses Annual physical exam Z00.00 Pure hypercholesterolemia E78.00 Migraine without status migrainosus, not intractable, unspecified migraine type G43.909 Migraine type: unspecified Status migrainosus presence: without status migrainosus Intractability: not intractable Lumbar spondylosis M47.816 Vitamin B12 deficiency E53.8 Vitamin D deficiency E55.9 Constipation, unspecified constipation type K59.00 Constipation type: unspecified constipation type Anxiety F41.9 Colon cancer screening Z12.11 Additional Codes PHQ-9 - 14522 - PHQ-9 Billing: Yes ([id number]) Assessment & Plan Assessment & Plan (1) Annual physical exam: Code(s): Z00.00 - Encounter for general adult medical examination without abnormal findings Category: Medical Plan: Results of her labs done a couple of weeks ago reviewed and discussed with patient She is up-to-date with her annual mammography - had her mammogram last done in June 2024 She is scheduled for her next annual gynecology exam and pap smear in October 2024 - gynecology is at [facility] She last had her Cologuard testing done in September 2021 and it is now time for her to get either a repeat Cologuard test or an actual screening colonoscopy - patient has decided to go with repeat Cologuard testing today She currently still has her menstrual periods so BMD is not yet indicated (2) Pure hypercholesterolemia: Code(s): E78.00 - Pure hypercholesterolemia, unspecified Category: Medical Plan: Have advised her that her cholesterol levels remain elevated on her recent labs and have increased slightly from previous Reinforced low cholesterol diet (3) Migraine: Code(s): G43.909 - Migraine, unspecified, not intractable, without status migrainosus Category: Medical Qualifiers: Migraine type: unspecified Status migrainosus presence: without status migrainosus Intractability: not intractable Qualified Code(s): G43.909 - Migraine, unspecified, not intractable, without status migrainosus Plan: Stable - states that she mostly gets headaches only around the time of her menstrual periods Reinforced avoidance of any potential migraine headache triggers Continue Naratriptan 2.5 mg PRN (4) Lumbar spondylosis: Code(s): M47.816 - Spondylosis without myelopathy or radiculopathy, lumbar region Category: Medical Plan: Reinforced activity and weight-lifting restrictions She continues to follow up with pain management in [place], [place] regularly for her chronic low back pain She is currently maintained on Oxycodone 15 mg BID (which she gets prescribed by pain management), Carisoprodol 350 mg TID PRN and Ibuprofen PRN; she used to take Gabapentin but stopped taking this last year (5) Vitamin B12 deficiency: Code(s): E53.8 - Deficiency of other specified B group vitamins Category: Medical Plan: Corrected - her B12 level remains normal on her recent labs (6) Vitamin D deficiency: Code(s): E55.9 - Vitamin D deficiency, unspecified Category: Medical Plan: Corrected - continue Vitamin D3 2000 units QD (7) Constipation: Code(s): K59.00 - Constipation, unspecified Category: Medical Qualifiers: Constipation type: unspecified constipation type Qualified Code(s): K59.00 - Constipation, unspecified Plan: Chronic - have reminded patient that her constipation is also partly due to her chronic pain Rx Contnue OTC Miralax QD PRN; advised that she can also take OTC Colace additionally PRN She is encouraged again to increase her oral fluids and dietary fiber intake (8) Anxiety: Code(s): F41.9 - Anxiety disorder, unspecified Category: Medical Plan: Continue Lorazepam QD PRN - Rx refilled (9) Colon cancer screening: Code(s): Z12.11 - Encounter for screening for malignant neoplasm of colon Category: Medical Plan: Patient has decided to do Cologuard testing again now instead of going for an actual colonoscopy - Cologuard ordered Plan As requested, flu vaccine given to patient today To return in 1 year for her next annual physical examination Orders: Orders Influenza [id number] Immunization Today Z23 - Encounter for immunization Referrals Cologuard Test Z12.11 - Encounter for screening for malignant neoplasm of colon, Z12.12 - Encounter for screening for malignant neoplasm of rectum Medications: Changed From albuterol sulfate 90 mcg/actuation 2 puffs PO Q6H PRN To Ventolin HFA 90 mcg/actuation (albuterol sulfate) 2 puffs PO Q6-8H 30 days PRN 18 grams 3RF shortness of breath or wheezing NS Refilled naratriptan do not exceed 2 doses per 24 hrs 2.5 mg PO ONCE 30 days PRN 30 tabs 3RF migraine headache G43.909 - Migraine, unspecified, not intractable, without status migrainosus oxycodone from pain management in [place], [place] 15 mg PO BID PRN 30 tabs 0RF pain lorazepam 1 mg PO DAILY 30 days PRN 30 tabs 1RF anxiety F41.9 - Anxiety disorder, unspecified
== END 2024-09-25 09:43 | disposition home or self-care (01) ==
PROVIDERS: PCP Internal Medicine; Visit Provider Internal Medicine
DX: Z00.00 Encounter for general adult medical examination without abnormal findings (principal); E78.00 Pure hypercholesterolemia, unspecified; G43.909 Migraine, unspecified, not intractable, without status migrainosus; M47.816 Spondylosis without myelopathy or radiculopathy, lumbar region; E53.8 Deficiency of other specified B group vitamins; E55.9 Vitamin D deficiency, unspecified; K59.00 Constipation, unspecified; F41.9 Anxiety disorder, unspecified; Z12.11 Encounter for screening for malignant neoplasm of colon; Z23 Encounter for immunization

== ENCOUNTER → 2024-09-25 08:58 | Outpatient (BNVA) | payer OTHER, SELFPAY | PROVIDERS: PCP Internal Medicine; Visit Provider Internal Medicine | DX: Z00.00 Encounter for general adult medical examination without abnormal findings (principal); Z23 Encounter for immunization; E78.00 Pure hypercholesterolemia, unspecified; G43.909 Migraine, unspecified, not intractable, without status migrainosus; M47.816 Spondylosis without myelopathy or radiculopathy, lumbar region; E53.8 Deficiency of other specified B group vitamins; E55.9 Vitamin D deficiency, unspecified; K59.00 Constipation, unspecified; F41.9 Anxiety disorder, unspecified | CPT/HCPCS: 90471; 90656; 96127; 99396 ==

== ENCOUNTER 2025-02-25 09:32 | Outpatient (AMB) | payer OTHER, SELFPAY ==
[2025-02-25 09:43] VITALS: BP 110/70; PULSE 64; O2SAT 98
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
== END 2025-02-25 10:17 | disposition home or self-care (01) ==
PROVIDERS: PCP Internal Medicine; Visit Provider Physician Assistant
DX: M54.6 Pain in thoracic spine (principal)

== ENCOUNTER 2025-02-25 09:32 | Outpatient (REF) | payer OTHER, SELFPAY ==
--- NOTE | ~2025-02-25 | XR_ITS ---
EXAMINATION: XR ABDOMEN KUB CLINICAL INDICATION: M54.9 - Dorsalgia, unspecified COMPARISON: None available. TECHNIQUE: AP view of the abdomen. FINDINGS: Abundant stool. Gas throughout the small and large intestine. No air-fluid levels. No intestinal dilatation. No metallic or radiopaque foreign body. Facet joint hypertrophy at L5-S1. Questionable calcifications overlapping the liver shadow, anterior location. XR/XR KUB IMPRESSION: Spondylosis, L5-S1. No intestinal obstruction pattern. Electronically signed by: Randall García MD 02/25/2025 10:35 AM EDT
--- NOTE | ~2025-02-25 | XR_ITS ---
EXAMINATION: XR CHEST CLINICAL INFORMATION: M54.9 - Dorsalgia, unspecified COMPARISON: None available. TECHNIQUE: 2 views of the chest were obtained. FINDINGS: No consolidation, pleural effusion or pneumothorax. Cardiomediastinal silhouette size is normal. Mild multilevel thoracic spondylosis. Inadequate evaluation of the axial skeleton.. XR/XR chest 2V IMPRESSION: No acute airspace disease. Mild spondylosis, thoracic spine. Electronically signed by: Randall García MD 02/25/2025 10:34 AM EDT
== END 2025-02-25 09:33 | disposition home or self-care (01) ==
LOC: HO.HMGCX 09:32
PROVIDERS: PCP Internal Medicine; Visit Provider Physician Assistant
DX: M54.6 Pain in thoracic spine (principal); N39.0 Urinary tract infection, site not specified
CPT/HCPCS: 71046; 74018; 87086; 99212

== ENCOUNTER → 2025-02-25 10:05 | Outpatient (BNV) | payer OTHER, SELFPAY | PROVIDERS: PCP Internal Medicine; Visit Provider Radiology Diagnostic Radiology | DX: K59.00 Constipation, unspecified (principal); M54.9 Dorsalgia, unspecified; M47.817 Spondylosis without myelopathy or radiculopathy, lumbosacral region | CPT/HCPCS: 71046; 74018; 74176 ==

== ENCOUNTER 2025-02-25 16:45 | Emergency (ER) | payer OTHER, SELFPAY ==
--- NOTE | ~2025-02-25 | CT_ITS ---
CLINICAL HISTORY: right flank pain CT abdomen and pelvis without contrast Comparison: None Findings: No consolidation or effusion. Unremarkable gallbladder. No biliary ductal dilatation. Unenhanced liver demonstrates small focal low-attenuation to the right of the falciform ligament possible focal fatty infiltration. Unenhanced spleen and pancreas are unremarkable. Adrenal glands are normal. No renal or ureteral stones and no hydronephrosis or hydroureter. No perinephric stranding. No bowel obstruction, pneumoperitoneum, or pneumatosis. Moderate colonic stool. Small fat containing umbilical hernia. Pelvic contents unremarkable. Appendix not visualized. No acute fracture. IMPRESSION: 1. No acute findings. No renal or ureteral stones. 2. Moderate colonic stool, correlate with constipation. This document has been electronically signed by: Rand Beltran MD on 02/25/2025 19:11:14
[2025-02-25 16:50] VITALS: BP 115/75; PULSE 94; RESP 16; TEMP 36.8; O2SAT 98; BMI 21.4
--- NOTE | 2025-02-25 16:50 | ED_ITS ---
HPI - General Adult General Chief complaint: General Medical Stated complaint: SOB/ Back pain, sent from Time Seen by Provider: 02/25/25 18:07 Source: patient Mode of arrival: ambulatory Limitations: no limitations History of Present Illness ED Provider: Dr. Kim HPI narrative: 49 year old female PMH: back pain , anxiety, migraineHLD Related Data Home Medications ?Medication ?Instructions ?Recorded ?Confirmed ibuprofen 800 mg tablet 800 mg PO Q12H PRN pain 08/01/20 09/25/24 Previous Rx's ?Medication ?Instructions ?Recorded cholecalciferol (vitamin D3) 50 50 mcg PO DAILY 90 days #90 caps 09/20/23 mcg (2,000 unit) capsule Ventolin HFA 90 mcg/actuation 2 puff PO Q6-8H PRN shortness of 09/25/24 aerosol inhaler (albuterol sulfate) breath or wheezing 30 days #18 grams lorazepam 1 mg tablet 1 mg PO DAILY PRN anxiety 30 days 09/25/24 #30 tabs naratriptan 2.5 mg tablet 2.5 mg PO ONCE PRN migraine 09/25/24 headache 30 days #30 tabs oxycodone 15 mg tablet 15 mg PO BID PRN pain #30 tabs 09/25/24 acetaminophen 325 mg tablet 325 mg PO QID PRN pain #90 tabs 02/25/25 (Tylenol) prednisone 20 mg tablet 60 mg (3 x 20 mg) PO DAILY Asthma 02/25/25 5 days #15 tabs Allergies Allergy/AdvReac Type Severity Reaction Status Date / Time sumatriptan Allergy Severe nausea, Verified 02/25/25 16:53 throat feels like closing codeine Allergy Intermediate itching Verified 02/25/25 16:53 Review of Systems 2 Review of Systems: Review of systems: General: Patient denies any fever chills recent illness or falls Musculoskeletal: back pain denies any or body aches or other injuries HEENT: denies headache, runny nose, ear pain Respiratory: denies shortness of breath, cough Cardiovascular: no chest pain or palpitations : denies dysuria, frequency Abdomen: no nausea vomiting denies abdominal pain Extremities: no swelling, no pain Skin: no diaphoresis Yes all other systems are reviewed and are negative PMFSH Past Medical History Medical History Vitamin D deficiency Anxiety Constipation Vitamin B12 deficiency Migraine Lumbar spondylosis Pure hypercholesterolemia Surgical History No pertinent past surgical history Family History Family History Father Hypertension CVD (cardiovascular disease) Mother Uterine cancer Social History Social History Housing: House Alcohol intake: current Alcohol intake frequency: holidays/special occasions only Patient Tobacco Use Status: Never used Tobacco e-Cigarette/Vaping Use: Never Used Second Hand Smoke Exposure: No Advance Directives: No Advance Directives Information Provided: Yes Do you have a plan to hurt others: No Plan service: No Current occupational status: employed Cognitive needs: No Hearing needs: No Vision needs: No Physical Exam ED Vital Signs: Vital Signs - 24 hr 02/25/25 16:50 02/25/25 18:55 Temperature 98.3 F 98.1 F Pulse Rate 94 72 Respiratory Rate 16 18 Blood Pressure 115/75 108/60 Pulse Oximetry 98 97 Oxygen Delivery Method Room Air Room Air BMI result Body Mass Index 21.4 General: Well-appearing well-nourished in no signs of distress HEENT: Normocephalic atraumatic Neck: No signs of JVD, no masses no tenderness or lymphadenopathy Cardiovascular: Regular rate and rhythm Respiratory: Clear to auscultation bilaterally Abdomen: Soft nontender no masses Extremities: Normal pedal pulses no signs of edema Skin: Dry warm no rashes Back: No tenderness full ROM Course Course Course Narrative: RME, this is a rapid medical exam performed by Kosta Martinez please refer to primary provider for complete H&P- 49 year old female presents for evaluation of right flank pain. She went into the walk-in clinic this morning, hold chest x- ray and a KUB. She was referred to the ER due to a questionable shadowing over the liver. she had a urinalysis that was unremarkable. She is referred here for a CT scan of the abdomen pelvis. Plan for labs and a CT scan. Reevaluation(s) Reevaluation #1: CT is unremarkable patient looks well I do think the patient safe to go home I will send home with the PCP follow up Medical Decision Making Medical Decision Making [facility] Narrative: I will send the patient for a CT check labs and reassess Differential Diagnosis Differential Diagnoses: The differential diagnosis associated with the presentation includes Kidney stone dehydration electrolyte abnormality back pain Lab Data [facility] Lab Attestation statement: I reviewed the patient's lab results. 02/25/25 16:57 02/25/25 16:57 Labs: Lab Results 02/25/25 02/25/25 Range/Units 16:57 17:38 WBC 7.5 (4.8-10.8) X10*3/uL RBC 4.43 (4.20-5.50) X10*6/uL Hgb 13.5 (12.0-16.0) g/dl Hct 38.5 (37.0-47.0) % MCV 86.9 (80.0-98.0) fL MCH 30.5 (27.0-33.0) pg MCHC 35.1 H (31.0-35.0) g/dl RDW 12.8 (11.0-16.0) % Plt Count 266 (160-400) X10*3/uL MPV 10.5 (9.4-12.3) fL Immature Gran % (Auto) 0.1 (0.0-0.4) % Neut % (Auto) 48.7 (45-73) % Lymph % (Auto) 36.9 (20-40) % Hardin % (Auto) 10.1 (2-11) % Eos % (Auto) 3.5 (0-4) % Baso % (Auto) 0.7 (0-2) % Lymph # (Auto) 2.8 (1.2-4.9) X10*3/uL Hardin # (Auto) 0.8 (0.1-1.2) X10*3/uL Eos # (Auto) 0.3 (0.0-0.4) X10*3/uL Baso # (Auto) 0.1 (0.0-0.2) X10*3/uL Abs Immat Gran (auto) 0.01 (0.00-0.03) X10*3/uL Absolute Neuts (auto) 3.7 (2.0-8.3) x10*3/uL Absolute Nucleated RBC 0.000 (0.0-0.012) X10*3/uL Nucleated RBC % (auto) 0.0 (0.0-0.2) /100WBC Sodium 140 (135-145) mmol/L Potassium 3.7 (3.3-5.1) mmol/L Chloride 103 (96-108) mmol/L Carbon Dioxide 25 (22-29) mmol/L Anion Gap 16 (12-20) BUN 10 (9-16) mg/dL Creatinine 0.73 (0.5-1.4) mg/dL Estim Creat Clear Calc 77.1 Estimated GFR > 60 Random Glucose 97 (60-115) mg/dL Calcium 9.8 (8.4-10.2) mg/dL Total Bilirubin 0.5 (0.0-1.0) mg/dL AST 23 (5-31) U/L ALT 15 (0-31) U/L Alkaline Phosphatase 70 (39-117) U/L Total Protein 7.8 (6.5-8.0) g/dL Albumin 4.6 (3.5-5.0) g/dL Lipase 19 (8-78) U/L Beta HCG, Quant < 2 mIU/mL Urine Color Yellow Urine Appearance Clear Urine pH 6.5 (5.0-9.0) Ur Specific Dixon 1.015 (1.005-1.025) Urine Protein Negative (Neg-Trace) mg/dL Urine Glucose (UA) Negative (Negative) mg/dL Urine Ketones Trace (Negative) mg/dL Urine Blood Negative (Negative) Urine Nitrite Negative (Negative) Ur Leukocyte Esterase Negative (Negative) Urine RBC 0-2 (0-2) /HPF Urine WBC 0-5 (0-5) /HPF Ur Squamous Epith Cells 0-2 (0-2) /HPF Urine Bacteria None Seen (None Seen) Hyaline Casts 0-2 (0-2) /LPF Radiology Impression Discussion of test interpretation with radiology: I have reviewed the radiologist's reading. External Record Review External record reviewed: Inpatient record, Office record and Outpatient record Discharge Plan Discharge Clinical Impression: Constipation, Back pain Patient Disposition: Home, Self-Care Instructions: Flank Pain (ED) Additional Instructions: You were seen today in the emergency department for back versus flank pain. You had urine and labs as well as a CAT scan done that only showed constipation. If you have any other concerns please return to the ER. Prescriptions: New acetaminophen [Tylenol] 325 mg tablet 325 mg PO QID PRN (Reason: pain) Qty: 90 0RF prednisone 20 mg tablet 60 mg PO DAILY 5 Days Qty: 15 0RF No Action ibuprofen 800 mg tablet 800 mg PO Q12H PRN (Reason: pain) cholecalciferol (vitamin D3) 50 mcg (2,000 unit) capsule 50 mcg PO DAILY 90 Days Qty: 90 3RF naratriptan 2.5 mg tablet 2.5 mg PO ONCE PRN (Reason: migraine headache) 30 Days Qty: 30 3RF Rx Instructions: do not exceed 2 doses per 24 hrs lorazepam 1 mg tablet 1 mg PO DAILY PRN (Reason: anxiety) 30 Days Qty: 30 1RF albuterol sulfate [Ventolin HFA] 90 mcg/actuation HFA aerosol inhaler 2 puff PO Q6-8H PRN (Reason: shortness of breath or wheezing) 30 Days Qty: 18 3RF oxycodone 15 mg tablet 15 mg PO BID PRN (Reason: pain) Qty: 30 0RF Patient Comments: from pain management in [place], [place] Rx Instructions: from pain management in [place], [place] Print Language: Tongan
[2025-02-25 17:01] LABS: MANUAL DIFF FLAG NO
[2025-02-25 17:10] LABS: Basophils Absolute Auto 0.1 X10*3/uL (0.0-0.2); Basophils Percent Auto 0.7 % (0-2); Eosinophils Absolute Auto 0.3 X10*3/uL (0.0-0.4); Eosinophils Percent Auto 3.5 % (0-4); Hematocrit 38.5 % (37.0-47.0); Hemoglobin 13.5 g/dl (12.0-16.0); Imm Gran Abs Auto 0.01 X10*3/uL (0.00-0.03); Imm Gran Pct Auto 0.1 % (0.0-0.4); Lymphocytes Absolute Auto 2.8 X10*3/uL (1.2-4.9); Lymphocytes Percent Auto 36.9 % (20-40); Mean Corpuscular HGB Conc 35.1 g/dl (31.0-35.0); Mean Corpuscular Hemoglobin 30.5 pg (27.0-33.0); Mean Corpuscular Volume 86.9 fL (80.0-98.0); Mean Platelet Volume 10.5 fL (9.4-12.3); Monocytes Absolute Auto 0.8 X10*3/uL (0.1-1.2); Monocytes Percent Auto 10.1 % (2-11); Neutrophils Absolute Auto 3.7 x10*3/uL (2.0-8.3); Neutrophils Percent Auto 48.7 % (45-73); Platelet Count 266 X10*3/uL (160-400); Red Blood Count 4.43 X10*6/uL (4.20-5.50); Red Cell Distribution Width 12.8 % (11.0-16.0); White Blood Count 7.5 X10*3/uL (4.8-10.8)
[2025-02-25 17:30] LABS: Alanine Aminotransferase 15 U/L (0-31); Albumin Level 4.6 g/dL (3.5-5.0); Alkaline Phosphatase 70 U/L (39-117); Anion Gap 16 (12-20); Aspartate Amino Transferase 23 U/L (5-31); Bilirubin Total 0.5 mg/dL (0.0-1.0); Blood Urea Nitrogen 10 mg/dL (9-16); Calcium 9.8 mg/dL (8.4-10.2); Carbon Dioxide 25 mmol/L (22-29); Chloride 103 mmol/L (96-108); Creatinine Clr Calc Pharmacy 77.1; Estimated Glomerular Filt Rate > 60; Glucose Random 97 mg/dL (60-115); HCG Quantitative < 2 mIU/mL; Lipase 19 U/L (8-78); Potassium 3.7 mmol/L (3.3-5.1); Sodium 140 mmol/L (135-145); Total Protein 7.8 g/dL (6.5-8.0)
[2025-02-25 17:45] LABS: Appearance Urine Clear; Color Urine Yellow; Glucose Urine UA Negative (Negative); Leukocyte Esterase Urine Negative (Negative); Nitrite Urine Negative (Negative); PH 6.5 (5.0-9.0); Specific Gravity - Urine 1.015 (1.005-1.025); Urine Blood Negative (Negative); Urine Ketones Trace mg/dL (Negative); Urine Protein Negative (Neg-Trace)
[2025-02-25 17:47] LABS: Bacteria Urine None Seen (None Seen); Hyaline Casts Urine 0-2 /LPF (0-2); RBC Urine 0-2 /HPF (0-2); Squamous Epithelial Cell Urine 0-2 /HPF (0-2); WBC Urine 0-5 /HPF (0-5)
[2025-02-25 18:55] VITALS: BP 108/60; PULSE 72; RESP 18; TEMP 36.7; O2SAT 97
[2025-02-25 19:42] VITALS: BP 119/65; PULSE 70; RESP 18; TEMP 36.6; O2SAT 97
[2025-02-25] MEDS: Acetaminophen 325 MG TABLET 650 MG PO (19:48)
[2025-02-25] MEDS: predniSONE 20 MG TABLET 60 MG PO (19:48)
[2025-02-25 19:53] VITALS: BP 119/65; PULSE 70; RESP 18; TEMP 36.6; O2SAT 97
== END 2025-02-25 19:54 | disposition home or self-care (01) ==
PROVIDERS: Physician Assistant; Emergency Provider Student in an Organized Health Care Education/Training Program; PCP Internal Medicine
DX: K59.00 Constipation, unspecified (principal); M54.9 Dorsalgia, unspecified
CPT/HCPCS: 36415; 74176; 80053; 81001; 83690; 84702; 85025; 99283; 99284

== ENCOUNTER 2025-03-07 06:44 | Outpatient (REF) | payer OTHER, SELFPAY | END 2025-03-07 06:45 | disposition home or self-care (01) | LOC: HO.LAB 06:44 | PROVIDERS: PCP Internal Medicine; Visit Provider Internal Medicine | DX: E78.00 Pure hypercholesterolemia, unspecified (principal); G43.909 Migraine, unspecified, not intractable, without status migrainosus; M47.816 Spondylosis without myelopathy or radiculopathy, lumbar region; E53.8 Deficiency of other specified B group vitamins; E55.9 Vitamin D deficiency, unspecified; K59.00 Constipation, unspecified; F41.9 Anxiety disorder, unspecified; Z79.891 Long term (current) use of opiate analgesic; Z79.899 Other long term (current) drug therapy | CPT/HCPCS: 96127; 99212 ==

== ENCOUNTER 2025-03-07 10:34 | Outpatient (AMB) | payer OTHER, SELFPAY ==
--- NOTE | 2025-03-07 10:45 | A.OFFPC_ITS ---
Vital Signs 03/07/25 10:46 Height 5 ft 3 in Weight 117 lb BMI 20.7 BP 110/78 Blood Pressure Location Lt brachial Position Sitting Pulse 94 Pulse Source Pulse Oximeter Pulse Oximetry (%) 97 Oxygen Delivery Method Room Air Intake Visit Reasons: [facility] [place] 02/26 SOB/ back pain Development Specialist Required: No Accompanied by: Self / Same As Patient Allergies sumatriptan Allergy (Severe, Verified 03/07/25 11:16) nausea, throat feels like closing codeine Allergy (Intermediate, Verified 03/07/25 11:16) itching Medication List - Last Reconciled 03/07/25 by Kip Osborn MD acetaminophen (Tylenol) 325 mg PO QID PRN cholecalciferol (vitamin D3) 50 mcg PO DAILY 90 days ibuprofen 800 mg PO Q12H PRN lorazepam 1 mg PO DAILY PRN 30 days naratriptan 2.5 mg PO ONCE PRN 30 days oxycodone 15 mg PO BID PRN Ventolin HFA 90 mcg/actuation (albuterol sulfate) 2 puffs PO Q6-8H PRN 30 days NS Tobacco use date assessed: 03/07/25 Dental Screening Dental Screen Date: 03/07/25 Did you have a dental visit in the last 12 months?: Yes Did you have a dental problem in the last 6 months where you did not have access to dental care?: No Was dental information given to patient?: Patient has dentist HPI [facility] [place] 02/26 SOB/ back pain HPI Details Patient comes in today for her F follow up She went to the ER a couple of weeks ago for right flank pain She initially went to the walk-in clinic but was later sent to the ER when initial KUB done showed (?)shadowing over the liver Abdominal and pelvic CT done at the ER came back normal except for a moderate colonic stool burden Patient states that she currently feels okay She denies any headaches or dizziness Denues any chest pains, no SOB (+) occasional nausea recently but denie s any vomiting, no abdominal pain No change in bowel habits noted Needs her Lorazepam Rx refilled PFSH Medical History Vitamin D deficiency Anxiety Constipation Vitamin B12 deficiency Migraine Lumbar spondylosis Pure hypercholesterolemia Surgical History No pertinent past surgical history Family History Father Hypertension CVD (cardiovascular disease) Mother Uterine cancer Social History Housing: House Alcohol intake: current Alcohol intake frequency: holidays/special occasions only Patient Tobacco Use Status: Never used Tobacco e-Cigarette/Vaping Use: Never Used Second Hand Smoke Exposure: No service: No Current occupational status: employed Cognitive needs: No Hearing needs: No Vision needs: No Questionnaire PHQ-9 Over the last 2 weeks, how often have you been bothered by any of the following problems? 1. Little interest or pleasure in doing things: not at all 2. Feeling down, depressed, or hopeless: not at all 3. Trouble falling or staying asleep, or sleeping too much: not at all 4. Feeling tired or having little energy: not at all 5. Poor appetite or overeating: not at all 6. Feeling bad about yourself - or that you are a failure or have let yourself or your family down: not at all 7. Trouble concentrating on things, such as reading the newspaper or watching television: not at all 8. Moving or speaking so slowly that other people could have noticed. Or the opposite - being so fidgety or restless that you have been moving around a lot more than usual: not at all 9. Thoughts that you would be better off or of hurting yourself in some way: not at all Total score: 0 Depression Screening Interpretation: Negative Depression Screening Done: Yes 43874 - PHQ-9 Billing: Yes Source: Developed by Drs. João Abdi, Oly Jeter, Darrick Murphy and colleagues, with an educational ciara from [employer]. Thrive Questionnaire Date Thrive assessed: 03/07/25 I am a: Patient What is your living situation today?: I have a steady place to live Within the past 12 months, did the food you bought not last and you didn't have the money to get more?: Never true Within the past 12 months, did you worry whether your food would run out before you got money to buy more?: Never true Do you have trouble paying for medicines?: No Do you have trouble getting transportation to medical appointments?: No Do you have trouble paying your heating and electricity bill?: No Do you have trouble taking care of your child, family member or friend?: No Do you have trouble with day-to-day activities such as bathing, preparing meals, shopping, managing finances, etc.?: No Are you currently unemployed and looking for a job?: No Are you interested in more education?: No Please select the resources that you would like help with: None Currently or been in a relationship where the following occur: No concerns reported THRIVE Score: 0 AUDIT C Alcohol Use Questionnaire (AUDIT-C) 1. How often do you have a drink containing alcohol?: 2-4 times a month 2. How many drinks containing alcohol do you have on a typical day when you are drinking?: 1 or 2 3. How often do you have six or more drinks on one occasion?: Never Total Score: 2 Score Reviewed/Action Taken: Yes HARINDER-7 AMB Questionnaire HARINDER-7 Date HARINDER - 7 assessed: 03/07/25 Feeling nervous, anxious, or on edge: 0 = Not at all Not being able to stop or control worryin = Not at all Worrying too much about different things: 0 = Not at all Trouble relaxin = Not at all Being so restless that it is hard to sit still: 0 = Not at all Becoming easily annoyed or irritable: 0 = Not at all Feeling afraid as if something awful might happen: 0 = Not at all Total HARINDER-7 score (0-4 normal; 5-9 mild; 10-14 moderate; 15-21 severe): 0 Source: Developed by Drs. João Abdi, Oly Jeter, Darrick Murphy and colleagues, with an educational ciara from [employer]. Review of Systems Const Denies chills, Denies fatigue, Denies fever(s) and Denies headache(s) ENT Denies dysphagia, Denies dizziness, Denies otalgia, Denies headache(s), Denies neck pain, Denies odynophagia and Denies sore throat Card Denies chest pain, Denies rapid heart rate, Denies irregular heart rhythm, Denies palpitations and Denies dyspnea Resp Denies chest congestion, Denies cough, Denies dyspnea and Denies wheezing GI Denies abdominal pain, Denies constipation, Denies dysphagia, Denies heartburn, Denies diarrhea, Reports nausea (occasional), Denies odynophagia and Denies vomiting Denies urinary frequency, Denies dysuria and Denies urinary urgency Musc Reports back pain (over the lower back - chronic), Denies arthralgias and Denies neck pain Skin/Breast Denies rash Neuro Denies dizziness, Denies headache(s) and Denies paresthesias Psych Reports anxiety and Denies depression Endo Denies fatigue and Denies palpitations Lorenzo/Lymph Denies easy bruising Aller/Immun Denies wheezing Physical exam (Primary Care) Vital Signs: Last Vital Signs Pulse 94 03/07/25 10:46 BP 110/78 03/07/25 10:46 Pulse Ox 97 03/07/25 10:46 Oxygen Delivery Method Room Air 03/07/25 10:46 BMI result Body Mass Index 20.7 Tobacco/Smoking Status: Tobacco use Status Tobacco use date assessed 03/07/25 03/07/25 10:51 Patient Tobacco Use Status Never used Tobacco 03/07/25 10:51 e-Cigarette/Vaping Use Never Used 03/07/25 10:51 PHQ-9: PHQ-9 Score PHQ-9: Total score 0 03/07/25 11:20 Depression Screening Interpretation: Negative Thrive Assessment: Date of Thrive Assessment Date Thrive assessed 03/07/25 03/07/25 10:51 Currently or been in a relationship where the following occur: No concerns reported Const General: no acute distress and alert HENMT Ears: TM's normal bilaterally and EAC's normal Throat: Yes posterior oropharynx normal and Yes tonsils normal (no TP congestion) Neck Neck: Yes no lymphadenopathy and Yes supple Thyroid: Thyroid normal Resp Auscultation: clear to auscultation bilaterally, no rales and no wheezes Cardio Rate: regular rate Rhythm: regular rhythm Heart sounds: no murmurs GI Palpation (GI): Soft to palpation and nontender Auscultation: normal bowel sounds General: Yes no CVA tenderness Back/Spine/Pelvis Back: no CVA tenderness Thoracic/Lumbar Spine: lumbar spinal tenderness (chronic) Skin Rashes: no rashes Extrem General: Yes no clubbing, cyanosis or edema Coding Level of Care Code Est Pt Level 4 (76795) Diagnoses Pure hypercholesterolemia E78.00 Migraine without status migrainosus, not intractable, unspecified migraine type G43.909 Migraine type: unspecified Status migrainosus presence: without status migrainosus Intractability: not intractable Lumbar spondylosis M47.816 Vitamin B12 deficiency E53.8 Vitamin D deficiency E55.9 Constipation, unspecified constipation type K59.00 Constipation type: unspecified constipation type Anxiety F41.9 Additional Codes PHQ-9 - 11683 - PHQ-9 Billing: Yes ([id number]) Assessment & Plan Assessment & Plan (1) Pure hypercholesterolemia: Code(s): E78.00 - Pure hypercholesterolemia, unspecified Category: Medical Plan: Have reminded patient that her cholesterol levels remain elevated on her labs back in August 2024 and they have increased slightly from previous Reinforced low cholesterol diet Will recheck her labs and fasting lipids as scheduled in 6 months for follow up (2) Migraine: Code(s): G43.909 - Migraine, unspecified, not intractable, without status migrainosus Category: Medical Qualifiers: Migraine type: unspecified Status migrainosus presence: without status migrainosus Intractability: not intractable Qualified Code(s): G43.909 - Migraine, unspecified, not intractable, without status migrainosus Plan: Stable - states that she mostly gets headaches only around the time of her menstrual periods Reinforced avoidance of any potential migraine headache triggers Continue Naratriptan 2.5 mg PRN Will start her on Ondansetron 4 mg PRN for her nausea (3) Lumbar spondylosis: Code(s): M47.816 - Spondylosis without myelopathy or radiculopathy, lumbar region Category: Medical Plan: Reinforced activity and weight-lifting restrictions She continues to follow up with pain management in [place], [place] regularly for her chronic low back pain She is currently maintained on Oxycodone 15 mg BID (which she gets prescribed by pain management), Carisoprodol 350 mg TID PRN and Ibuprofen PRN; she used to take Gabapentin but stopped taking this last year (4) Vitamin B12 deficiency: Code(s): E53.8 - Deficiency of other specified B group vitamins Category: Medical Plan: Will recheck her B12 level in a few months for follow up (5) Vitamin D deficiency: Code(s): E55.9 - Vitamin D deficiency, unspecified Category: Medical Plan: Continue Vitamin D3 2000 units QD (6) Constipation: Code(s): K59.00 - Constipation, unspecified Category: Medical Qualifiers: Constipation type: unspecified constipation type Qualified Code(s): K59.00 - Constipation, unspecified Plan: Chronic - have reminded patient that her constipation is partly due to her chronic pain Rx Contnue OTC Miralax QD PRN; advised that she can also take OTC Colace additionally PRN She is encouraged again to increase her oral fluids and dietary fiber intake (7) Anxiety: Code(s): F41.9 - Anxiety disorder, unspecified Category: Medical Plan: Continue Lorazepam QD PRN - Rx refilled Plan To return as scheduled on 09/26/2025 for her annual physical examination Medications: New ondansetron 4 mg PO Q8H 10 days PRN 30 tabs 1RF nausea and vomiting Refilled lorazepam 1 mg PO DAILY 30 days PRN 30 tabs 1RF anxiety F41.9 - Anxiety disorder, unspecified
[2025-03-07 10:46] VITALS: BP 110/78; PULSE 94; O2SAT 97; BMI 20.7
== END 2025-03-07 11:29 | disposition home or self-care (01) ==
LOC: HO.HMCH 10:35
PROVIDERS: PCP Internal Medicine; Visit Provider Internal Medicine
DX: E78.00 Pure hypercholesterolemia, unspecified (principal); G43.909 Migraine, unspecified, not intractable, without status migrainosus; M47.816 Spondylosis without myelopathy or radiculopathy, lumbar region; E53.8 Deficiency of other specified B group vitamins; E55.9 Vitamin D deficiency, unspecified; K59.00 Constipation, unspecified; F41.9 Anxiety disorder, unspecified